=== PATIENT | female | born 1990 | race Caucasian/White ===

== ENCOUNTER → 2016-12-06 | Outpatient (CLI) | payer MEDICAID ==
--- NOTE | 2016-12-06 16:29 | Diagnostic Imaging Report ---
INDICATION: anatomy survey. TECHNIQUE: Multiple real-time grayscale images were obtained over the gravid uterus. COMPARISON: None FINDINGS: There is a single live intrauterine with a heart rate of 139 beats per minute. The fetus is in transverse lie. The amount of amniotic fluid appears visually appropriate. The placenta is posteriorly located and there is no previa. anatomy survey was performed and the following structures were visualized and normal: Cerebral ventricles, spine, four-chamber heart, all four extremities, stomach, umbilical cord insertion and kidneys. Biometrical measurements are as follows: Biparietal 5.24 cm, age 22 weeks 0 days. Head circumference 19.86 cm, age 22 weeks 1 days. Abdominal circumference 17.09 cm, age 22 weeks 1 days. Femur length 3.76 cm, age 22 weeks 1 days. Sonographic estimate age: 22 weeks 1 days. Sonographic estimated date of delivery: [id number]. Estimated Weight: 470 gm (+/- 69 gm). LMP percentile: 25%. heart rate: 139 beats per minute. number: 1 of 1. IMPRESSION: 1. 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 Cerebellum appears normally formed without evidence of Dandy-Walker malformation. 2. Otherwise, normal anatomy survey. Dictated by: Dictated on workstation # [id number]
== END ==
LOC: RAD 12:03
PROVIDERS: ATTEND Family Medicine
DX: Z36.2 Encounter for other antenatal screening follow-up (principal); Z3A.22 22 weeks gestation of pregnancy
CPT/HCPCS: 76805